=== PATIENT | female | born 1955 | race Hispanic/Latino ===

== ENCOUNTER 2024-07-14 14:20 | Emergency (ER) | payer MEDICARE ==
[~2024-07-14] VITALS: Ht 157.5 cm; Wt 62.6 kg
[~2024-07-14 14:20] MED LIST: ALPRAZOLAM0.25 MG PO; AMLODIPINE BESY10 MG PO; ASPIRIN EC81 MG PO; LOSARTAN POTAS100 MG PO; MELOXICAM7.5 MG PO; PANTOPRAZOLE SO40 MG PO; ZEBETA10 MG PO
[2024-07-14 14:57] VITALS: TEMP 98.4
[2024-07-14 15:41] LABS: BASOPHILS # (AUTO) 0.1 (0.0-0.1); BASOPHILS % 0.6 % (0.0-1.0); EOSINOPHILS # (AUTO) 0.2 (0.0-0.4); EOSINOPHILS % 1.8 % (0.0-6.0); HEMOGLOBIN 13.6 g/dL (12.0-16.0); LYMPHOCYTES # (AUTO) 2.6 (1.0-3.2); MEAN CORPUSCULAR HEMOGLOBIN 31.7 pg (28-32); MEAN CORPUSCULAR VOLUME 93.2 fL (81-99); MONOCYTES # (AUTO) 0.6 (0.2-0.8); MONOCYTES % 7.6 % (4.4-11.3); NEUTROPHILS # (AUTO) 4.9 (2.1-6.9); NEUTROPHILS % 58.6 % (38.7-80.0); PLATELET COUNT 262 x10e3/uL (140-360); RED BLOOD COUNT 4.29 x10e6/uL (3.6-5.1); RED CELL DISTRIBUTION WIDTH 12.8 % (11.7-14.4); WHITE BLOOD COUNT 8.38 x10e3/uL (4.8-10.8)
[2024-07-14] MEDS: SODIUM CHLORIDE 0.9% 1000ML 1,000 ML IV ONE (15:58)
[2024-07-14] MEDS: METOCLOPRAMIDE HCL 10 MG/2ML VIAL IV ONE (15:58)
[2024-07-14] MEDS: DIPHENHYDRAMINE HCL INJ 50 MG/ML VIAL IV ONE (15:59)
[2024-07-14] MEDS: ACETAMINOPHEN 325 MG TAB PO ONE (15:59)
[2024-07-14 16:04] LABS: INR 0.85; PROTHROMBIN TIME 12.2 seconds (11.9-14.5)
[2024-07-14 16:05] LABS: PARTIAL THROMBOPLASTIN TIME 29.9 seconds (23.8-35.5)
[2024-07-14 16:12] LABS: ALBUMIN 4.1 g/dL (3.5-5.0); ALBUMIN/GLOBULIN RATIO 1.2 (0.8-2.0); ANION GAP 15.7 mmol/L (8-16); BILIRUBIN,TOTAL 0.5 mg/dL (0.2-1.2); CALCIUM 9.7 mg/dL (8.4-10.2); CREATININE, SERUM 0.87 mg/dL (0.57-1.11); POTASSIUM 3.7 mmol/L (3.5-5.1); TOTAL PROTEIN 7.4 g/dL (6.5-8.1)
[2024-07-14] MEDS ORDERED: IOPAMIDOL 370 MG/ML 100 ML INFUS..BTL INJ ONE (16:16)
[2024-07-14 19:19] VITALS: PULSE 64; RESP 16; O2SAT 100
== END 2024-07-14 20:08 | disposition home or self-care (01) ==
LOC: ER 15:18
DX: R51.9 Headache, unspecified (principal); H53.8 Other visual disturbances; I10 Essential (primary) hypertension; E78.5 Hyperlipidemia, unspecified; K21.9 Gastro-esophageal reflux disease without esophagitis; J45.909 Unspecified asthma, uncomplicated; M54.9 Dorsalgia, unspecified; G89.29 Other chronic pain
CPT/HCPCS: 36415; 70496; 70498; 80053; 85025; 85610; 85730; 99283; J1200; J2765; J7030; Q9967

== ENCOUNTER 2024-07-19 16:31 | Emergency (ER) | payer MEDICARE ==
[~2024-07-19] VITALS: Ht 157.5 cm; Wt 62.6 kg
[2024-07-19 17:14] LABS: BASOPHILS % 0.5 % (0.0-1.0); EOSINOPHILS # (AUTO) 0.2 (0.0-0.4); HEMATOCRIT 39.2 % (34.2-44.1); HEMOGLOBIN 12.7 g/dL (12.0-16.0); LYMPHOCYTES # (AUTO) 2.6 (1.0-3.2); LYMPHOCYTES % 34.8 % (18.0-39.1); MEAN CORPUSCULAR HEMOGLOBIN 31.8 pg (28-32); MEAN CORPUSCULAR HGB CONC 32.4 g/dL (31-35); MEAN CORPUSCULAR VOLUME 98.2 fL (81-99); MONOCYTES # (AUTO) 0.5 (0.2-0.8); MONOCYTES % 7.2 % (4.4-11.3); NEUTROPHILS # (AUTO) 4.1 (2.1-6.9); NEUTROPHILS % 55.2 % (38.7-80.0); PLATELET COUNT 245 x10e3/uL (140-360); RED BLOOD COUNT 3.99 x10e6/uL (3.6-5.1); RED CELL DISTRIBUTION WIDTH 12.5 % (11.7-14.4); WHITE BLOOD COUNT 7.49 x10e3/uL (4.8-10.8)
[2024-07-19 17:30] LABS: INR 0.9; PROTHROMBIN TIME 12.7 seconds (11.9-14.5)
[2024-07-19 17:31] LABS: PARTIAL THROMBOPLASTIN TIME 30.4 seconds (23.8-35.5)
[2024-07-19 17:37] LABS: ALBUMIN 4.2 g/dL (3.5-5.0); ALBUMIN/GLOBULIN RATIO 1.4 (0.8-2.0); BILIRUBIN,TOTAL 0.4 mg/dL (0.2-1.2); CALCIUM 9.9 mg/dL (8.4-10.2); CREATININE, SERUM 1.11 mg/dL (0.57-1.11); TOTAL PROTEIN 7.1 g/dL (6.5-8.1)
[2024-07-19] MEDS: KETOROLAC TROMETHAMINE 30 MG/ML VIAL IV STA (19:31)
[2024-07-19] MEDS: DIPHENHYDRAMINE HCL INJ 50 MG/ML VIAL IV ONE (19:31)
[2024-07-19] MEDS: METOCLOPRAMIDE HCL 10 MG/2ML VIAL IV ONE (19:32)
[2024-07-19 20:44] VITALS: PULSE 65; RESP 16; TEMP 98.3
[2024-07-19 20:46] VITALS: BP 130/83; PULSE 65; RESP 16; TEMP 98.3; O2SAT 100
== END 2024-07-19 20:48 | disposition home or self-care (01) ==
LOC: ER 19:10
DX: R51.9 Headache, unspecified (principal); I10 Essential (primary) hypertension; E78.5 Hyperlipidemia, unspecified; K21.9 Gastro-esophageal reflux disease without esophagitis; J45.909 Unspecified asthma, uncomplicated; G50.0 Trigeminal neuralgia; M54.9 Dorsalgia, unspecified; G89.29 Other chronic pain; Z98.1 Arthrodesis status
CPT/HCPCS: 36415; 70450; 80053; 85025; 85610; 85730; 99284; J1200; J1885; J2765

== ENCOUNTER 2024-10-22 11:07 | Emergency (ER) | payer MEDICARE ==
[~2024-10-22] VITALS: Ht 157.5 cm; Wt 62.6 kg
[2024-10-22 11:27] VITALS: TEMP 97.8
[2024-10-22] MEDS: ASPIRIN 325 MG TAB PO ONE (11:53)
[2024-10-22 14:25] VITALS: PULSE 71; RESP 16
[2024-10-22 14:34] VITALS: BP 129/63; O2SAT 98
== END 2024-10-22 14:33 | disposition home or self-care (01) ==
LOC: FSED 11:14
DX: R20.0 Anesthesia of skin (principal); R07.89 Other chest pain; I10 Essential (primary) hypertension; E78.5 Hyperlipidemia, unspecified; K21.9 Gastro-esophageal reflux disease without esophagitis; M54.9 Dorsalgia, unspecified; G89.29 Other chronic pain; J45.909 Unspecified asthma, uncomplicated; G50.0 Trigeminal neuralgia; R94.31 Abnormal electrocardiogram [ECG] [EKG]
CPT/HCPCS: 70450; 71045; 80053; 81003; 85379; 93005; 99284